=== PATIENT | male | born 1960 | race Caucasian/White ===

== ENCOUNTER 2022-08-06 20:44 | Observation (INO) | payer OTHER, SELFPAY ==
[2022-08-06] VITALS (7 sets, daily range): BP systolic 110–137; BP diastolic 63–86; PULSE 98; RESP 16; TEMP 36.7; O2SAT 98; BMI 35.3
--- NOTE | 2022-08-06 20:56 | ED.GENADULT ---
HPI - General Adult General Time Seen by Provider: 20:56 Date Seen: 08/06/22 Chief complaint: Chest Pain Stated complaint: Chest Pain Time Seen by Provider: 08/06/22 20:50 Source: patient and RN notes reviewed Mode of arrival: ambulatory Limitations: no limitations History of Present Illness HPI narrative: 62-year-old male who comes in today with chest pain. Related Data Home Medications Medication Instructions Recorded Confirmed atorvastatin .ROUTE 08/06/22 buspirone .ROUTE 08/06/22 citalopram .ROUTE 08/06/22 levothyroxine .ROUTE 08/06/22 Allergies Allergy/AdvReac Type Severity Reaction Status Date / Time chloramphenicol AdvReac Verified 08/06/22 20:53 [From Chloromycetin] Penicillins AdvReac Verified 08/06/22 20:53 Review of Systems Status of ROS: Reports: 10 or more systems reviewed and unremarkable except as noted in History and below Exam Narrative: Exam Narrative: General: Well-developed and well-nourished, no acute distress Head: Atraumatic and normocephalic Eyes: Pupils are equal reactive, extraocular motions intact, conjunctiva clear ENT: External nose and ears are normal, posterior pharynx without erythema or exudate Neck: No midline cervical tenderness, full spontaneous range of motion the neck, trachea midline, no adenopathy Heart: Regular rate and rhythm no murmurs or thrills Lungs: Clear to auscultation bilaterally without wheezes or crackles Abdomen: Soft, nontender, nondistended with active bowel sounds Musculoskeletal: No tenderness, deformity, or edema Neurologic: Awake, alert, and oriented x3, no gross focal neurologic deficits, cranial nerves intact as tested Psych: Mood and affect are appropriate Skin: No rashes Const: Vital Signs, click to edit/add: Vital Signs - 24 hr 08/06/22 20:48 08/06/22 21:56 08/06/22 21:07 Temperature 98.1 F Pulse Rate [Left P ulse Oximeter] 98 Respiratory Rate 16 Blood Pressure 137/73 118/78 Blood Pressure [Le ft Upper Arm] 137/72 Pulse Oximetry 98 Oxygen Delivery Me thod Room Air 08/06/22 21:58 08/06/22 21:59 08/06/22 22:26 Temperature Pulse Rate [Left P ulse Oximeter] Respiratory Rate Blood Pressure 122/86 110/75 Blood Pressure [Le ft Upper Arm] 111/63 Pulse Oximetry Oxygen Delivery Me thod 08/06/22 23:04 Temperature Pulse Rate [Left P ulse Oximeter] Respiratory Rate Blood Pressure Blood Pressure [Le ft Upper Arm] 113/65 Pulse Oximetry Oxygen Delivery Il thod Course Course Hospital Course: Patient seen examined, prior records are reviewed. Prior history of anxiety and hypothyroidism. Patient presents with substernal chest pain radiating into the neck, left arm, and right arm. Pain is improved now. Initial EKG is reassuring initial troponin is negative. Chest x-ray ordered, repeat troponin. Patient took aspirin at home. Nitroglycerin will be ordered along with fluid bolus. If repeat troponin is negative, plan to admit for further cardiac evaluation given risk factors and concerning history. Reevaluation(s) Reevaluation #1: Labs independently interpreted by me demonstrates normal troponin, reassuring hepatic function panel, normal lipase. Repeat troponin after 2 hours. is still 0. Pain-free after nitroglycerin in the emergency department. Discussed risks and benefits admission versus discharge with patient and family. I am concerned about patient's story, risk factors of elevated cholesterol, obesity, gender and age. Patient agreeable to be observed in hospital overnight with further evaluation and treatment. Care was discussed with Bk hospitalist. Time: 00:15 Vital Signs Vital signs: Initial Vital Signs Temperature 98.1 F 08/06/22 20:48 Temperature Source Temporal Artery Scan 08/06/22 20:48 Pulse Rate 98 08/06/22 20:48 Respiratory Rate 16 08/06/22 20:48 Blood Pressure 137/72 08/06/22 20:48 Blood Pressure Mean 93 08/06/22 20:48 Blood Pressure Position Sitting 08/06/22 20:48 Pulse Oximetry 98 08/06/22 20:48 Oxygen Delivery Method 08/06/22 20:48 Vital Signs Temperature 98.1 F 08/06/22 20:48 Pulse Rate 98 08/06/22 20:48 Respiratory Rate 16 08/06/22 20:48 Blood Pressure 137/72 08/06/22 20:48 Pulse Oximetry 98 08/06/22 20:48 Oxygen Delivery Method 08/06/22 20:48 Temperature 98.1 F 08/06/22 20:48 Pulse Rate 98 08/06/22 20:48 Respiratory Rate 16 08/06/22 20:48 Blood Pressure 113/65 08/06/22 23:04 Pulse Oximetry 98 08/06/22 20:48 Oxygen Delivery Method 08/06/22 20:48 Medical Decision Making Medical Records Medical records reviewed: Yes I reviewed the patient's medical records Lab Data Lab results reviewed: Yes I reviewed the patient's lab results Labs: Lab Results 08/06/22 08/06/22 08/06/22 Range/Units 20:57 20:57 21:07 WBC 9.25 (4.50-11.00) K/uL RBC 4.21 L (4.30-5.90) m/uL Hgb 12.9 L (13.5-17.5) gm/dL Hct 38.5 (37.0-53.0) % MCV 91 (80-100) fL MCH 31 (26-34) pg MCHC 34 (32-36) gm/dL RDW Coeff of Tiffany 12.4 (11.5-15.5) % Plt Count 199 (140-440) K/uL Neut % (Auto) 59.6 (42.0-72.0) % Lymph % (Auto) 29.5 (20-44) % [place] % (Auto) 9.0 (0.0-11.0) % Eos % (Auto) 1.5 (0.0-7.0) % Baso % (Auto) 0.2 (0.0-3.0) % Neut # (Auto) 5.51 (1.7-7.0) K/uL Lymph # (Auto) 2.73 (0.90-2.90) K/uL [place] # (Auto) 0.80 (0.00-0.90) K/UL Eos # (Auto) 0.14 (0.00-0.50) K/uL Baso # (Auto) 0.02 (0.00-0.30) K/uL Sodium 140 (135-149) mmol/L Potassium 3.7 (3.6-5.1) mmol/L Chloride 109 (96-114) mmol/L Carbon Dioxide 27 (20-32) mmol/L BUN 17 (7-30) mg/dL Creatinine 1.2 (0.5-1.5) mg/dL Estimated Creat Clear 69.16 Estimated GFR 68 ml/min Glucose 131 H (60-115) mg/dL Calcium 8.4 (8.4-10.6) mg/dL Total Bilirubin 0.4 (0.1-1.5) mg/dL Direct Bilirubin 0.2 (0.0-0.5) mg/dL AST 25 (12-35) U/L ALT 30 (4-50) U/L Alkaline Phosphatase 94 (40-150) U/L NT-Pro-B Natriuret Pep 266 pg/mL Total Protein 6.8 (6.0-8.3) g/dL Albumin 3.8 (3.3-5.0) g/dL Lipase 148 (23-300) U/L SARS-CoV-2 (PCR) (Negative) POC Troponin I 0.00 L (0.01-0.04) ng/ml 08/06/22 08/06/22 Range/Units 21:13 22:30 WBC (4.50-11.00) K/uL RBC (4.30-5.90) m/uL Hgb (13.5-17.5) gm/dL Hct (37.0-53.0) % MCV (80-100) fL MCH (26-34) pg MCHC (32-36) gm/dL RDW Coeff of Tiffany (11.5-15.5) % Plt Count (140-440) K/uL Neut % (Auto) (42.0-72.0) % Lymph % (Auto) (20-44) % [place] % (Auto) (0.0-11.0) % Eos % (Auto) (0.0-7.0) % Baso % (Auto) (0.0-3.0) % Neut # (Auto) (1.7-7.0) K/uL Lymph # (Auto) (0.90-2.90) K/uL [place] # (Auto) (0.00-0.90) K/UL Eos # (Auto) (0.00-0.50) K/uL Baso # (Auto) (0.00-0.30) K/uL Sodium (135-149) mmol/L Potassium (3.6-5.1) mmol/L Chloride (96-114) mmol/L Carbon Dioxide (20-32) mmol/L BUN (7-30) mg/dL Creatinine (0.5-1.5) mg/dL Estimated Creat Clear Estimated GFR ml/min Glucose (60-115) mg/dL Calcium (8.4-10.6) mg/dL Total Bilirubin (0.1-1.5) mg/dL Direct Bilirubin (0.0-0.5) mg/dL AST (12-35) U/L ALT (4-50) U/L Alkaline Phosphatase (40-150) U/L NT-Pro-B Natriuret Pep pg/mL Total Protein (6.0-8.3) g/dL Albumin (3.3-5.0) g/dL Lipase (23-300) U/L SARS-CoV-2 (PCR) Negative SARS-CoV-2 (Negative) POC Troponin I 0.00 L (0.01-0.04) ng/ml Imaging Data Chest x-ray: Attestation: I have reviewed the pertinent imaging results. My impression: Independently interpreted by me negative for acute findings Radiologist's impression: IMPRESSION: Negative portable chest. ECG Data Attestation: I personally reviewed and interpreted this ECG as follows: Prior ECG tracings: not available for review Interpretation: Independently interpreted by me performed at 9:20 a.m. demonstrates normal sinus rhythm rate 63, no acute ST elevations or depressions, normal intervals, normal axis, QTC 460, ID 172. No prior for comparison. Discharge Plan Discharge Clinical Impression: Chest pain Patient Disposition: Admitted As Inpatient
--- NOTE | 2022-08-06 21:07 | CRLHL7_ITS ---
For Patients: As a result of the Century Cures Act, medical imaging exams and procedure reports are released immediately into your electronic medical record. You may view this report before your referring provider. If you have questions, please contact your health care provider. INDICATION: Chest pain. TECHNIQUE: AP portable chest. FINDINGS: Clear lungs. Normal heart size and pulmonary vascularity. The included skeleton is unremarkable. IMPRESSION: Negative portable chest. Dictated by Landon Rodriguez MD @ 08/06/2022 9:46:53 PM (Electronically Signed)
[2022-08-06 21:22] LABS: Basophils Absolute Auto 0.02 K/uL (0.00-0.30); Basophils Percent Auto 0.2 % (0.0-3.0); Eosinophils Absolute Auto 0.14 K/uL (0.00-0.50); Eosinophils Percent Auto 1.5 % (0.0-7.0); Hematocrit 38.5 % (37.0-53.0); Hemoglobin* 12.9 gm/dL (13.5-17.5); Immature Granulocytes Abs Auto 0.02 K/uL (0.00-0.30); Immature Granulocytes Pct Auto 0.2 %; Lymphocytes Absolute Auto 2.73 K/uL (0.90-2.90); Lymphocytes Percent Auto 29.5 % (20-44); Mean Corpuscular HGB Conc 34 gm/dL (32-36); Mean Corpuscular Hemoglobin 31 pg (26-34); Mean Corpuscular Volume 91 fL (80-100); Neutrophils Absolute Auto 5.51 K/uL (1.7-7.0); Neutrophils Percent Auto 59.6 % (42.0-72.0); Platelet Count* 199 K/uL (140-440); RDW Coefficient of Variation % 12.4 % (11.5-15.5); Red Blood Count 4.21 m/uL (4.30-5.90); White Blood Count* 9.25 K/uL (4.50-11.00)
[2022-08-06 21:32] LABS: Slide Review Reflex No
[2022-08-06 21:36] LABS: Albumin* 3.8 g/dL (3.3-5.0)
[2022-08-06 21:37] LABS: Chloride* 109 mmol/L (96-114); Potassium* 3.7 mmol/L (3.6-5.1); Sodium* 140 mmol/L (135-149)
[2022-08-06 21:39] LABS: Bilirubin Direct* 0.2 mg/dL (0.0-0.5); Bilirubin Total* 0.4 mg/dL (0.1-1.5); Carbon Dioxide* 27 mmol/L (20-32); Creatinine* 1.2 mg/dL (0.5-1.5); Est. Creatinine Clearance* 69.16; Estimated Glomerular Filt Rate 68 ml/min; Total Protein* 6.8 g/dL (6.0-8.3)
[2022-08-06 21:40] LABS: Alanine Aminotransferase* 30 U/L (4-50); Alkaline Phosphatase* 94 U/L (40-150); Aspartate Amino Transferase* 25 U/L (12-35); Blood Urea Nitrogen* 17 mg/dL (7-30); Calcium* 8.4 mg/dL (8.4-10.6); Glucose* 131 mg/dL (60-115); Lipase* 148 U/L (23-300)
[2022-08-06 21:51] LABS: NT Pro B Type NatriureticPept* 266 pg/mL
[2022-08-06] MEDS: NITROGLYCERIN 0.4 MG TAB.SUBL SUBLINGUAL (21:55)
[2022-08-06] MEDS: 0.9 % SODIUM CHLORIDE 1000 ml 1,000 ML IV (21:55)
[2022-08-06 23:25] LABS: SARS PCR* Negative SARS-CoV-2 (Negative)
[2022-08-07] VITALS (7 sets, daily range): BP systolic 124–162; BP diastolic 71–85; PULSE 60–87; RESP 16–18; TEMP 36.2–36.9; O2SAT 97–99; BMI 35.7
--- NOTE | 2022-08-07 00:27 | ED.NURSE ---
gave report to RN on Med Surg, pt's is bringing CPap machine back to hospital for patient overnight. Pt transporting to floor with all belongings at this time.
--- NOTE | 2022-08-07 00:51 | PM.IMCN1 ---
Date of Consult Consult date: 08/07/22 Primary Care Provider: Not a Local Provider Consult Narrative Narrative: Bk Adan Hospitalist ADMISSION SUPPORT NOTE eHospitalist was contacted by with request of admission support. Chief complaint: Chest Pain HPI: The patient presents with chest pain that started suddenly today. He states that the pain was substernal radiated to the left chest and both arms. It was 5-6/10 intensity with associated shortness of breath. 2 nitroglycerin was given total but did not provide immediate relief but he does state that his pain is now 2/10 intensity. He has had previous left-sided chest pain when working outside and doing other activities for the past 10 years but reports that this pain has been the most severe he is ever experienced. Review of systems other mention above is negative Home Medications: Reviewed see EMR for details Pertinent Medical History: Dyslipidemia, depression, hypothyroidism, obstructive sleep apnea on CPAP, insomnia, left wrist fracture repair Pertinent Social History: Denies history of smoking or drugs of abuse or alcohol PFSH PFSH Social History Highest level of school completed/degree received: Master's degree Smoking Status: Never smoker How often do you have a drink containing alcohol: never AUDIT-C Alcohol total score: 0 Non-prescribed substance use: denies use Caffeine: Yes (1 cup/day) service: No Meds Home Medications and Allergies Home Medications Medication Instructions Recorded Confirmed Type atorvastatin .ROUTE 08/06/22 History buspirone .ROUTE 08/06/22 History citalopram .ROUTE 08/06/22 History levothyroxine .ROUTE 08/06/22 History Allergies Allergy/AdvReac Type Severity Reaction Status Date / Time chloramphenicol AdvReac Verified 08/06/22 20:53 [From Chloromycetin] Penicillins AdvReac Verified 08/06/22 20:53 Exam Narrative: Exam Narrative: Exam (performed via interactive video with assistance of bedside nurse): General: Alert, cooperative, no acute distress, obese HEENT: Oral mucosa pink and moist without erythema, fair dentition Lungs: Clear to auscultation bilaterally without crackle or wheeze however diminished throughout CV: Regular rate and rhythm without loud murmur rub or gallop Ext: No pitting edema noted Skin: No rashes, bruises or lesions appreciated on gross visualization of exposed skin Neuro: Alert, oriented x 3. CN III -VII, XI, XII grossly intact, moves all extremities without any significant focal deficit appreciated Const: Vital Signs, click to edit/add: Vital Signs - 24 hr 08/06/22 20:48 08/06/22 21:56 08/06/22 21:07 Temperature 98.1 F Pulse Rate [Left P ulse Oximeter] 98 Respiratory Rate 16 Blood Pressure 137/73 118/78 Blood Pressure [Le ft Upper Arm] 137/72 Pulse Oximetry 98 Oxygen Delivery Me thod Room Air 08/06/22 21:58 08/06/22 21:59 08/06/22 22:26 Temperature Pulse Rate [Left P ulse Oximeter] Respiratory Rate Blood Pressure 122/86 110/75 Blood Pressure [Le ft Upper Arm] 111/63 Pulse Oximetry Oxygen Delivery Me thod 08/06/22 23:04 Temperature Pulse Rate [Left P ulse Oximeter] Respiratory Rate Blood Pressure Blood Pressure [Le ft Upper Arm] 113/65 Pulse Oximetry Oxygen Delivery Me thod Labs Labs: Short CBC 08/06/22 Range/Units 20:57 WBC 9.25 (4.50-11.00) K/uL Hgb 12.9 L (13.5-17.5) gm/dL Hct 38.5 (37.0-53.0) % Plt Count 199 (140-440) K/uL BMP 08/06/22 20:57 Sodium 140 Potassium 3.7 Chloride 109 Carbon Dioxide 27 BUN 17 Creatinine 1.2 Glucose 131 H Calcium 8.4 Liver Function 08/06/22 Range/Units 20:57 Total Bilirubin 0.4 (0.1-1.5) mg/dL Direct Bilirubin 0.2 (0.0-0.5) mg/dL AST 25 (12-35) U/L ALT 30 (4-50) U/L Alkaline Phosphatase 94 (40-150) U/L Albumin 3.8 (3.3-5.0) g/dL Assessment and Plan Assessment and plan (1) Chest pain: Status: Acute Plan Recent lab/CXR: Reviewed see EMR for details EKG: Per my interpretation showed sinus rhythm Assessment and Plan: 1. Chest pain-concern for acute coronary syndrome. Troponin negative x2. Continue daily aspirin. He likely needs stress test as an outpatient. Check troponin in the morning. 2. Dyslipidemia-stable on statin 3. Depression-stable on buspirone and citalopram 4. Hypothyroidism-stable on Synthroid 5. Obstructive sleep apnea-continue CPAP 6. DVT prophylaxis-Lovenox 7. CODE STATUS full code per documentation Chart review was performed as well as evaluation of the patient via video. Thank you for involving ehospitalist. Please contact [phone] if further assistance is needed.
[2022-08-07] MEDS: ZOLPIDEM 5 MG TABLET PO (01:31)
[2022-08-07] MEDS: MELATONIN 3 MG TABLET PO (01:31)
--- NOTE | 2022-08-07 06:38 | PC.NURSE ---
Addendum entered by Harleen Phoenix RN 08/07/22 07:17: Margie Hummel sup inspected CPAP and OK'd it for use Original Note: Pt to room at 0030. Indep with ambulation. No c/o chest pain, rather ?discomfort?. VS WNL. CPAP on while asleep. LS Dim throughout. Prescription med in pharm bin to be verified, pt stated he added 3 melatonin pills to the Ambien pill container. ?
[2022-08-07 07:12] LABS: Basophils Absolute Auto 0.03 K/uL (0.00-0.30); Basophils Percent Auto 0.4 % (0.0-3.0); Eosinophils Absolute Auto 0.16 K/uL (0.00-0.50); Hematocrit 36.8 % (37.0-53.0); Hemoglobin* 12.4 gm/dL (13.5-17.5); Immature Granulocytes Abs Auto 0.02 K/uL (0.00-0.30); Immature Granulocytes Pct Auto 0.2 %; Lymphocytes Absolute Auto 2.32 K/uL (0.90-2.90); Lymphocytes Percent Auto 28.7 % (20-44); Mean Corpuscular HGB Conc 34 gm/dL (32-36); Mean Corpuscular Hemoglobin 31 pg (26-34); Mean Corpuscular Volume 92 fL (80-100); Monocytes Percent Auto 9.3 % (0.0-11.0); Neutrophils Percent Auto 59.4 % (42.0-72.0); Platelet Count* 175 K/uL (140-440); RDW Coefficient of Variation % 12.6 % (11.5-15.5); White Blood Count* 8.08 K/uL (4.50-11.00)
[2022-08-07 07:21] LABS: Albumin* 3.4 g/dL (3.3-5.0); Chloride* 112 mmol/L (96-114); Slide Review Reflex No
[2022-08-07 07:22] LABS: Potassium* 3.8 mmol/L (3.6-5.1); Sodium* 141 mmol/L (135-149)
[2022-08-07 07:24] LABS: Alkaline Phosphatase* 78 U/L (40-150); Aspartate Amino Transferase* 24 U/L (12-35); Bilirubin Total* 0.5 mg/dL (0.1-1.5); Blood Urea Nitrogen* 16 mg/dL (7-30); Carbon Dioxide* 27 mmol/L (20-32); Est. Creatinine Clearance* 82.99; Estimated Glomerular Filt Rate 85 ml/min; Total Protein* 6.2 g/dL (6.0-8.3)
[2022-08-07 07:25] LABS: Alanine Aminotransferase* 27 U/L (4-50); Glucose* 100 mg/dL (60-115)
[2022-08-07 07:40] LABS: Troponin I* < 0.01 ng/mL (0.01-0.04)
--- NOTE | 2022-08-07 09:37 | CRLHL7_ITS ---
For Patients: As a result of the Century Cures Act, medical imaging exams and procedure reports are released immediately into your electronic medical record. You may view this report before your referring provider. If you have questions, please contact your health care provider. INDICATION: Chest pain. COMPARISON: Portable AP chest August 06, 2022. TECHNIQUE: CT chest with intravenous contrast; coronal and sagittal reformats. Findings: No CT evidence of acute or chronic pulmonary thromboembolism. No abnormal mediastinal or hilar lymphadenopathy. Normal size cardiac silhouette without any evidence of pericardial effusion. No evidence of pleural effusion. Limited CT through the upper abdomen is unremarkable. No abnormal intra pulmonary nodular densities are identified. IMPRESSION: Negative CT chest with intravenous contrast. Please note that all CT scans at this facility use dose modulation, iterative reconstruction, and/or weight-based dosing when appropriate to reduce radiation dose to as low as reasonably achievable. Dictated by Michael Denins MD @ 08/07/2022 11:55:37 AM (Electronically Signed)
[2022-08-07] MEDS: SODIUM CHLORIDE 0.9 % (FLUSH) 10 ML SYRINGE 5 ML IVF (09:57)
--- NOTE | 2022-08-07 14:26 | P.IMHP_ITS ---
Hospitalist- H&P: [facility] History of Present Illness Date Seen: 08/07/22 Chief complaint: Chest Pain Narrative: Meo Will is a 62 year old male who presented to the emergency room on 08/06 for chest pain that presented suddenly, not associated with exertion. Pain was noted substernally, with radiation into left chest and bilateral upper extremities, accompanied by mild shortness of breath. ER course and findings: - no acute abnormalities on EKG - negative troponin - improvement with symptoms after administration of nitroglycerin, although improvement was not immediate Given patient's symptoms and risk factors, it was recommended that he be admitted to the hospital. He was admitted overnight by MOHAN -hospitalist. This morning, patient is feeling better. He has no further chest pain. Notes an occasional tightness on left side of chest; no alleviating or aggravating factors. No dyspnea, no fevers, no GI symptoms. History updated below. PCP is Dr. Beltran at the [facility] in [place]. Review of Systems Status of ROS: Reports: 10 or more systems reviewed and unremarkable except as noted in History and below Narrative: Has noted intermittent left-sided chest pain in the past, typically thought to be associated with a musculoskeletal source (ie present after wood working, etc) No lower extremity edema or erythema. No recent air travel (drove to [place], [place] last week). No recent trauma or illness. No sick contacts. No GI concerns. Up-to-date on colonoscopy. [facility] Medical History (Updated 08/07/22 @ 16:18 by Anna Saavedra MD) Anxiety Hyperlipidemia Hypothyroidism Insomnia Social History (Updated 08/07/22 @ 14:30 by Anna Saavedra MD) Narrative: Lives with Sayda conte. Adult children. 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 Never smoker. No concerning alcohol use. Highest level of school completed/degree received: Master's degree Smoking Status: Never smoker How often do you have a drink containing alcohol: never AUDIT-C Alcohol total score: 0 Non-prescribed substance use: denies use Caffeine: Yes (1 cup/day) service: No Meds Home Medications and Allergies Home Medications Medication Instructions Recorded Confirmed Type atorvastatin 40 mg tablet 40 mg PO DAILY 08/07/22 08/07/22 History bupropion HCl 150 mg 24 hr tablet, 150 mg PO DAILY 08/07/22 08/07/22 History extended release citalopram 40 mg tablet 40 mg PO DAILY 08/07/22 08/07/22 History levothyroxine 100 mcg tablet 100 mcg PO DAILY 08/07/22 08/07/22 History (Synthroid) melatonin 3 mg tablet 3 mg PO DAILY 08/07/22 08/07/22 History zolpidem 5 mg tablet 2.5 mg PO DAILY PRN 08/07/22 08/07/22 History Allergies Allergy/AdvReac Type Severity Reaction Status Date / Time chloramphenicol AdvReac Verified 08/07/22 10:23 [From Chloromycetin] Penicillins AdvReac Verified 08/07/22 10:23 Exam Narrative: Exam Narrative: GEN: Alert and oriented, nontoxic in appearance HEENT: EOMIs bilaterally, no scleral icterus CV: RRR, No concerning murmurs, rubs, or gallops R: LCTA bilaterally without concerning wheezing, rales, or rhonchi Ext: wwp, no concerning edema Skin: No concerning skin lesions or rashes on exposed skin Neuro: Nonfocal, no resting tremor, gait not observed Psych: Appropriate Const: Vital Signs, click to edit/add: Vital Signs - 24 hr 08/06/22 20:48 08/06/22 21:56 08/06/22 21:07 Temperature 98.1 F Pulse Rate [Left P ulse Oximeter] 98 Pulse Rate [Pulse Oximeter] Respiratory Rate 16 Blood Pressure 137/73 118/78 Blood Pressure [Le ft Upper Arm] 137/72 Blood Pressure [Ri ght Arm] Pulse Oximetry 98 Oxygen Delivery Me od Room Air 08/06/22 21:58 08/06/22 21:59 08/06/22 22:26 Temperature Pulse Rate [Left P ulse Oximeter] Pulse Rate [Pulse Oximeter] Respiratory Rate Blood Pressure 122/86 110/75 Blood Pressure [Le ft Upper Arm] 111/63 Blood Pressure [Ri ght Arm] Pulse Oximetry Oxygen Delivery Me thod 08/06/22 23:04 08/07/22 01:13 08/07/22 01:13 Temperature 97.1 F L Pulse Rate [Left P ulse Oximeter] Pulse Rate [Pulse Oximeter] 62 Respiratory Rate 16 16 Blood Pressure Blood Pressure [Le ft Upper Arm] 113/65 Blood Pressure [Ri ght Arm] 124/84 Pulse Oximetry 99 99 Oxygen Delivery Me thod Room Air Room Air 08/07/22 03:00 08/07/22 07:45 08/07/22 11:00 Temperature 97.3 F L 97.3 F L 97.7 F Pulse Rate [Left P ulse Oximeter] Pulse Rate [Pulse Oximeter] 63 70 60 Respiratory Rate 16 16 16 Blood Pressure Blood Pressure [Le ft Upper Arm] Blood Pressure [Ri ght Arm] 128/85 133/79 132/72 Pulse Oximetry 97 97 98 Oxygen Delivery Me thod Room Air Room Air Room Air Hospitalist - H&P: Result Labs Labs: Short CBC 08/06/22 08/07/22 Range/Units 20:57 06:45 WBC 9.25 8.08 (4.50-11.00) K/uL Hgb 12.9 L 12.4 L (13.5-17.5) gm/dL Hct 38.5 36.8 L (37.0-53.0) % Plt Count 199 175 (140-440) K/uL BMP 08/06/22 08/07/22 20:57 06:45 Sodium 140 141 Potassium 3.7 3.8 Chloride 109 112 Carbon Dioxide 27 27 BUN 17 16 Creatinine 1.2 1.0 Glucose 131 H 100 Calcium 8.4 8.0 L Cardiac Enzymes 08/07/22 Range/Units 06:45 Troponin I < 0.01 L (0.01-0.04) ng/mL Liver Function 08/06/22 08/07/22 Range/Units 20:57 06:45 Total Bilirubin 0.4 0.5 (0.1-1.5) mg/dL Direct Bilirubin 0.2 (0.0-0.5) mg/dL AST 25 24 (12-35) U/L ALT 30 27 (4-50) U/L Alkaline Phosphatase 94 78 (40-150) U/L Albumin 3.8 3.4 (3.3-5.0) g/dL Assessment and Plan Assessment and plan (1) Chest pain: Problem comment: - concerning given risk factors: Age, gender, BMI >35, hyperlipidemia - troponin negative x3 - CTA negative for acute findings - stress echocardiogram performed 08/07: reassuring without acute abnormalities Status: Acute (2) Normocytic anemia: Problem comment: - incidentally noted on admission, baseline unclear - no evidence of acute bleeding - patient states up-to-date on colonoscopy Status: Acute Plan - given reassuring serial troponins, reassuring stress echo, reassuring chest CTA, and resolution of symptoms: patient discharged home on 08/07 - no changes made to home medications, f/u with PCP 1-2 weeks - Sayda present at bedside during visit and d/c, questions answered
[2022-08-07] MEDS: PERFLUTREN LIPID MICROSPHERES 2 ML VIAL IV (15:18)
--- NOTE | 2022-08-07 15:38 | W.PM.STED ---
Stress Test Note Date Time Seen by Provider: 14:57 Date Seen: 08/07/22 Date of test: 08/07/22 Providers Referring provider: Anna Saavedra Primary care provider: Not a Local Provider Stress test physician: Katina Garcia Stress Test Note Stress test ordered: Stress Echo Indication for test: Chest pain Stress test medicine: [facility] Results discussion: Resting EKG: Sinus rhythm, 71 beats per minute. Resting blood pressure: 120/80 Stress test: Patient exercised following standard Santino protocol on the treadmill. He was able to exercise to 6 minutes 42 seconds stopping for fatigue/shortness of breath/legs being tired. This was equivalent to 8.1 Mets. He had a maximum heart rate of 143 beats per minute which was 107% of a calculated target heart rate of 133. There was no significant ischemia[place] [address] beats per minute. I did talk to the hospitalist after the test was done. Patient had no chest pain during the test. Impression: Subjectively negative, objectively negative EKG portion of this stress test. Follow up suggested: Patient will return back to the floor, will await Cardiology to read echo images.
--- NOTE | 2022-08-07 17:33 | PC.NURSE ---
Pt alert and oriented, denies pain. Ind with cares. Denies nausea, tolerating diet. VSS, on RA. NSR on monitor. Voiding without issue ind. Had stress test and chest CT, pt cleared for D/C home. IV removed intact. Discharge instructions reviewed with patient, questions answered. Pt given WC ride to spouse's car at entrance.
== END 2022-08-07 16:50 | disposition home or self-care (01) ==
LOC: ED 08-07 00:16 → MEDSURG 08-07 00:28
PROVIDERS: Internal Medicine; Admitting Provider Family Medicine; Emergency Provider Family Medicine; Visit Provider Family Medicine
DX: R07.9 Chest pain, unspecified (principal); D64.9 Anemia, unspecified; E78.5 Hyperlipidemia, unspecified; F41.9 Anxiety disorder, unspecified; E03.9 Hypothyroidism, unspecified; F32.A Depression, unspecified; G47.33 Obstructive sleep apnea (adult) (pediatric); Z99.89 Dependence on other enabling machines and devices; G47.00 Insomnia, unspecified
CPT/HCPCS: 36415; 71045; 71260; 80048; 80053; 80076; 83690; 83880; 84484; 85025; 87635; 93016; 93325; 93351; 96360; 96361; 99199; 99285; G0378; A9270; J7030; Q9957; Q9967

== ENCOUNTER 2024-06-16 10:18 | Outpatient (CLI) | payer MEDICARE, BC, SELFPAY | END 2024-06-16 10:19 | disposition home or self-care (01) | PROVIDERS: PCP Internal Medicine; Visit Provider Internal Medicine | DX: E78.5 Hyperlipidemia, unspecified (principal); E03.9 Hypothyroidism, unspecified; Z12.5 Encounter for screening for malignant neoplasm of prostate | CPT/HCPCS: 80053; 80061; 84443; G0103 ==

== ENCOUNTER 2024-10-13 10:39 | Outpatient (CLI) | payer MEDICARE, BC, SELFPAY ==
--- NOTE | 2024-10-13 12:00 | W.ANESCHARGE ---
Anesthesia Charges Start Date/Time Anesthesia Start Date: 10/13/24 Anesthesia Start Time: 11:20 Stop Date/Time Anesthesia Stop Date: 10/13/24 Anesthesia Stop Time: 11:58 Coding CPT Codes CPT Codes: MARLEEN LWR INTST NDSC NOS - 13072 ([id number]) P2 - PATIENT W/MILD SYST DISEASE, QK - BUSINESS DEVELOPMENT ANALYST 2-4 CNCRNT ANES PROC, QX - CODING QUALITY COORDINATOR SVC W/ MD MED DIRECTION
--- NOTE | 2024-10-13 12:00 | P.ANES_ITS ---
Anesthesia Charges Start Date/Time Anesthesia Start Date: 10/13/24 Anesthesia Start Time: 11:20 Stop Date/Time Anesthesia Stop Date: 10/13/24 Anesthesia Stop Time: 11:58 Coding CPT Codes CPT Codes: MARLEEN LWR INTST NDSC NOS - 07976 ([id number]) P2 - PATIENT W/MILD SYST DISEASE, QK - GEOSPATIAL ANALYST 2-4 CNCRNT ANES PROC, QX - INFORMATION SYSTEMS SECURITY MANAGER SVC W/ MD MED DIRECTION
--- NOTE | 2024-10-13 12:00 | P.ANES_ITS ---
Anesthesia Charges Start Date/Time Anesthesia Start Date: 10/13/24 Anesthesia Start Time: 11:20 Stop Date/Time Anesthesia Stop Date: 10/13/24 Anesthesia Stop Time: 11:58 Coding CPT Codes CPT Codes: MARLEEN LWR INTST NDSC NOS - 44620 ([id number]) P2 - PATIENT W/MILD SYST DISEASE, QK - HVAC INSTRUCTOR 2-4 CNCRNT ANES PROC, QX - GEOSCIENCE LABORATORY TECHNICIAN SVC W/ MD MED DIRECTION
--- NOTE | 2024-10-13 12:00 | W.ANESCHARGE ---
Anesthesia Charges Start Date/Time Anesthesia Start Date: 10/13/24 Anesthesia Start Time: 11:20 Stop Date/Time Anesthesia Stop Date: 10/13/24 Anesthesia Stop Time: 11:58 Coding CPT Codes CPT Codes: MARLEEN LWR INTST NDSC NOS - 44063 ([id number]) P2 - PATIENT W/MILD SYST DISEASE, QK - INSURANCE CLAIM REPRESENTATIVE 2-4 CNCRNT ANES PROC, QX - BUILDING GUARD DEPUTY SHERIFF SVC W/ MD MED DIRECTION
== END 2024-10-13 10:40 | disposition home or self-care (01) ==
LOC: OP CLINIC 10:41
PROVIDERS: PCP Internal Medicine; Visit Provider Surgery
DX: Z12.11 Encounter for screening for malignant neoplasm of colon (principal); D12.8 Benign neoplasm of rectum; K57.30 Diverticulosis of large intestine without perforation or abscess without bleeding
CPT/HCPCS: 00811; 45385; 88305; J2704

== ENCOUNTER 2025-02-23 11:36 | Outpatient (CLI) | payer MEDICARE, BC, SELFPAY | END 2025-02-23 11:37 | disposition home or self-care (01) | PROVIDERS: PCP Internal Medicine; Visit Provider Internal Medicine | DX: M25.571 Pain in right ankle and joints of right foot (principal) | CPT/HCPCS: 86038; 86140; 86200; 86431 ==

== ENCOUNTER 2025-04-16 07:59 | Outpatient (CLI) | payer MEDICARE, BC, SELFPAY | END 2025-04-16 08:00 | disposition home or self-care (01) | LOC: NFLDREF 04-19 08:30 | PROVIDERS: PCP Internal Medicine; Referring Provider Internal Medicine; Visit Provider Internal Medicine | DX: R53.83 Other fatigue (principal) | CPT/HCPCS: 82533; 82670; 84270; 84402; 84403 ==